=== PATIENT | male | born 1945 | race Caucasian/White ===

== ENCOUNTER → 2021-10-22 | Outpatient (CLI) | payer MEDICARE, OTHER ==
[~2021-10-22] MED LIST: OMEP40CA4 PO; SIMV20TA22 PO
== END ==
LOC: M LABSMTC 09:09
PROVIDERS: ATTEND Anesthesiology
DX: Z01.812 Encounter for preprocedural laboratory examination (principal); Z20.822 Contact with and (suspected) exposure to COVID-19

== ENCOUNTER 2023-07-10 08:26 | Inpatient (IN) | payer MEDICARE ==
[~2023-07-10] VITALS: Ht 167.6 cm; Wt 62.7 kg
[2023-07-10] MEDS ORDERED: FAMO40TA3 PO (08:42)
[2023-07-10] MEDS ORDERED: NS 2,140 ML in IV 1 EA IV ONE (08:50)
[2023-07-10] MEDS ORDERED: cefTRIAXone SOD 2 GM in D5W MINI-BAG PLUS 50 ML IV ONE (08:50)
[2023-07-10 08:54] LABS: BASO % 0.3 % (0.0-1.0); HEMATOCRIT 40.5 % (42.0-52.0); HEMOGLOBIN 13.6 g/dl (13.5-17.5); LYMPH # 0.7 10^3/uL (1.5-5.0); LYMPH % 7.7 % (24.0-44.0); MEAN CORPUSCULAR HEMOGLOBIN 31.9 pg (27.0-33.0); MEAN CORPUSCULAR HGB CONC 33.6 g/dl (32.0-36.5); MEAN CORPUSCULAR VOLUME 94.8 fl (80.0-96.0); MONO # 0.5 10^3/uL (0.0-0.8); MONO % 5.4 % (2.0-8.0); NEUTROPHILS # 8.3 10^3/uL (1.5-8.5); NEUTROPHILS % 86.3 % (36.0-66.0); PLATELET COUNT, AUTOMATED 214 10^3/uL (150-450); RED BLOOD COUNT 4.27 10^6/uL (4.30-6.10); WHITE BLOOD COUNT 9.6 10^3/uL (4.0-10.0)
[2023-07-10 09:19] LABS: ALBUMIN 3.9 G/DL (3.2-5.2); ALKALINE PHOSPHATASE 52 U/L (46-116); ALT/SGPT 24 U/L (7.0-40); AST/SGOT 17 U/L (<34); BILIRUBIN,TOTAL 0.4 MG/DL (0.3-1.2); BLOOD UREA NITROGEN 19 MG/DL (9-23); CALCIUM LEVEL 8.7 MG/DL (8.3-10.6); CARBON DIOXIDE LEVEL 25 MMOL/L (20-31); CHLORIDE LEVEL 100 MMOL/L (98-107); CREATININE FOR GFR 0.83 MG/DL (0.70-1.30); GLOMERULAR FILTRATION RATE > 60.0 (>42); GLUCOSE, FASTING 163 MG/DL (74-106); SODIUM LEVEL 136 MMOL/L (136-145); TOTAL PROTEIN 7.2 G/DL (5.7-8.2)
[2023-07-10] MEDS ORDERED: ACETAMINOPHEN TAB 650MG DOSE (2X325MG) PO ONE (09:30)
[2023-07-10 09:44] LABS: CK-MB VALUE MASS < 1.0 NG/ML (<3.6)
[2023-07-10 09:46] LABS: ALBUMIN 4.2 G/DL (3.2-5.2); ALKALINE PHOSPHATASE 55 U/L (46-116); ALT/SGPT 23 U/L (7.0-40); AST/SGOT 24 U/L (<34); BILIRUBIN,DIRECT 0.1 MG/DL (<0.4); BILIRUBIN,TOTAL 0.4 MG/DL (0.3-1.2); BLOOD UREA NITROGEN 20 MG/DL (9-23); CALCIUM LEVEL 8.9 MG/DL (8.3-10.6); CARBON DIOXIDE LEVEL 25 MMOL/L (20-31); CHLORIDE LEVEL 102 MMOL/L (98-107); CPK CREATINE PHOSPHOKINASE 107 U/L (46-171); CREATININE FOR GFR 0.82 MG/DL (0.70-1.30); GLOMERULAR FILTRATION RATE > 60.0 (>42); GLUCOSE, FASTING 154 MG/DL (74-106); MB/CK RELATIVE INDEX 0.93 (< OR =4); POTASSIUM SERUM 3.9 MMOL/L (3.5-5.1); SODIUM LEVEL 136 MMOL/L (136-145); TOTAL PROTEIN 7.3 G/DL (5.7-8.2)
[2023-07-10 09:49] LABS: THYROID STIMULATING HORMONE 0.694 uIU/ML (0.55-4.78)
[2023-07-10 09:53] LABS: PROCALCITONIN 0.14 ng/ml
[2023-07-10 11:23] LABS: CK-MB VALUE MASS < 1.0 NG/ML (<3.6)
[2023-07-10 11:24] LABS: CPK CREATINE PHOSPHOKINASE 98 U/L (46-171); MB/CK RELATIVE INDEX 1.02 (< OR =4)
[2023-07-10] MEDS ORDERED: ISOVUE-370 76% 100ML VIAL As Ordered ONE (12:02)
[2023-07-10] MEDS ORDERED: IBUPROFEN 400MG TAB PO ONE (13:00)
[2023-07-10] MEDS ORDERED: MED REC IN PROGRESS XX SCH (13:40)
[2023-07-10] MEDS ORDERED: IBUPROFEN 600MG TAB PO PRN (13:55)
[2023-07-10] MEDS ORDERED: HOME MED LIST COMPLETE! XX SCH (14:45)
[2023-07-10 15:20] VITALS: BP 134/81; TEMP 98.1; O2SAT 95
[2023-07-10] MEDS: DOXYCYCLINE HYCLATE 100 MG in D5W MINI-BAG PLUS 100 ML IV SCH (17:02)
[2023-07-10] MEDS: LACTOBACILLUS ACIDOPHILUS CAP (BACID) PO SCH (17:59)
[2023-07-10] MEDS: ACETAMINOPHEN TAB 650MG DOSE (2X325MG) PO PRN (20:57)
[2023-07-10] MEDS ORDERED: SIMVASTATIN 20 MG TAB PO SCH (21:00)
[2023-07-10] MEDS ORDERED: PANTOPRAZOLE 40MG TAB (PROTONIX) PO SCH (21:00)
[2023-07-10 22:00] VITALS: BP 129/76; TEMP 97.9; O2SAT 98
[2023-07-11] MEDS: DOXYCYCLINE HYCLATE 100 MG in D5W MINI-BAG PLUS 100 ML IV SCH (04:32)
[2023-07-11 06:00] VITALS: BP 163/63; TEMP 98.2; O2SAT 96
[2023-07-11] MEDS: ACETAMINOPHEN TAB 650MG DOSE (2X325MG) PO PRN (06:12)
[2023-07-11 06:27] LABS: BASO % 0.2 % (0.0-1.0); HEMATOCRIT 34.5 % (42.0-52.0); LYMPH # 1.2 10^3/uL (1.5-5.0); LYMPH % 10.9 % (24.0-44.0); MEAN CORPUSCULAR HEMOGLOBIN 31.4 pg (27.0-33.0); MONO # 0.8 10^3/uL (0.0-0.8); MONO % 7.3 % (2.0-8.0); NEUTROPHILS # 8.7 10^3/uL (1.5-8.5); NEUTROPHILS % 81.1 % (36.0-66.0); PLATELET COUNT, AUTOMATED 183 10^3/uL (150-450); RED BLOOD COUNT 3.63 10^6/uL (4.30-6.10); WHITE BLOOD COUNT 10.7 10^3/uL (4.0-10.0)
[2023-07-11 06:35] LABS: HEMOGLOBIN 11.4 g/dl (13.5-17.5)
[2023-07-11 06:40] LABS: BLOOD UREA NITROGEN 16 MG/DL (9-23); CALCIUM LEVEL 8.3 MG/DL (8.3-10.6); CARBON DIOXIDE LEVEL 27 MMOL/L (20-31); CHLORIDE LEVEL 104 MMOL/L (98-107); CREATININE FOR GFR 0.68 MG/DL (0.70-1.30); GLOMERULAR FILTRATION RATE > 60.0 (>42); GLUCOSE, FASTING 122 MG/DL (74-106); POTASSIUM SERUM 3.8 MMOL/L (3.5-5.1); SODIUM LEVEL 138 MMOL/L (136-145)
[2023-07-11] MEDS: LACTOBACILLUS ACIDOPHILUS CAP (BACID) PO SCH (08:08)
[2023-07-11] MEDS ORDERED: cefTRIAXone SOD 2 GM in D5W MINI-BAG PLUS 50 ML IV SCH (09:00)
[2023-07-11] MEDS ORDERED: ENOXAPARIN 40MG/0.4ML SYRINGE (J1650 PER 10MG) SC SCH (09:00)
[2023-07-11] MEDS ORDERED: AMOX875T2 PO (13:19)
[2023-07-11] MEDS ORDERED: RISATAB3 PO (13:19)
[2023-07-11] MEDS ORDERED: DOXY100T PO (13:19)
[2023-07-11] MEDS ORDERED: DOXYCYCLINE HYCLATE 100MG TABLET PO SCH (18:00)
[2023-07-13] MEDS ORDERED: PREVNAR-20 VACCINE 0.5ML SYRINGE IM.IMMUN ONE (09:00)
[2023-07-13 16:08] LABS: BODY FLUID CULTURE Not indicated. (.); LEGIONELLA ANTIGEN URINE Negative (Negative); ORGANISM ID Not indicated. (.); SPECIMEN SOURCE Urine (.); URINE STREP PNEUMONIAE ANTIGEN Negative (Negative)
== END 2023-07-11 14:19 | disposition home or self-care (01) | DRG 871 ==
LOC: M ED 08:26 → M ED INP 13:54 → ENRESERV 14:35 → M MSPAV 15:09
PROVIDERS: ADMIT Internal Medicine Nephrology; ATTEND Student in an Organized Health Care Education/Training Program
DX: A41.9 Sepsis, unspecified organism (principal); J18.9 Pneumonia, unspecified organism; E78.5 Hyperlipidemia, unspecified; K21.9 Gastro-esophageal reflux disease without esophagitis; D64.9 Anemia, unspecified; Z98.41 Cataract extraction status, right eye; Z98.42 Cataract extraction status, left eye; Z79.899 Other long term (current) drug therapy; Z20.822 Contact with and (suspected) exposure to COVID-19

== ENCOUNTER 2024-12-28 09:13 | Inpatient (IN) | payer MEDICARE ==
[2024-12-28] VITALS (14 sets, daily range): BP systolic 128–229; BP diastolic 63–95; TEMP 97.5–98.8; O2SAT 95–100
[~2024-12-28] VITALS: Ht 165.1 cm; Wt 65.9 kg
[~2024-12-28 09:13] MED LIST changes: +AMOX875T2 PO; +DOXY100T PO; +FAMO40TA3 PO; +RISATAB3 PO
[2024-12-28 10:35] LABS: MEAN CORPUSCULAR HEMOGLOBIN 28.2 pg (27.0-33.0); MEAN CORPUSCULAR HGB CONC 30.8 g/dl (32.0-36.5); MEAN CORPUSCULAR VOLUME 91.7 fl (80.0-96.0); PLATELET COUNT, AUTOMATED 298 10^3/uL (150-450); RED BLOOD COUNT 1.56 10^6/uL (4.30-6.10); WHITE BLOOD COUNT 8.8 10^3/uL (4.0-10.0)
[2024-12-28 10:40] LABS: HEMATOCRIT 14.3 % (42.0-52.0)
[2024-12-28 10:41] LABS: HEMOGLOBIN 4.4 g/dl (13.5-17.5)
[2024-12-28] MEDS ORDERED: HOME MED LIST COMPLETE! XX SCH (10:50)
[2024-12-28 10:59] LABS: INR 1.06; PARTIAL THROMBOPLASTIN TIME 21.8 SECONDS (24.8-34.2); PROTHROMBIN TIME 14.1 SECONDS (12.5-14.5)
[2024-12-28 11:08] LABS: ALBUMIN 3.2 G/DL (3.2-5.2); ALKALINE PHOSPHATASE 47 U/L (40-129); ALT/SGPT 18 U/L (7.0-40); AST/SGOT 16 U/L (<34); BILIRUBIN,DIRECT < 0.1 MG/DL (<0.4); BILIRUBIN,TOTAL 0.2 MG/DL (0.3-1.2); BLOOD UREA NITROGEN 43 MG/DL (9-23); CALCIUM LEVEL 8.4 MG/DL (8.3-10.6); CARBON DIOXIDE LEVEL 25 MMOL/L (20-31); CHLORIDE LEVEL 107 MMOL/L (98-107); CREATININE FOR GFR 1.45 MG/DL (0.70-1.30); GLOMERULAR FILTRATION RATE 49.9 (>35); GLUCOSE, FASTING 188 MG/DL (74-106); MAGNESIUM LEVEL 2.4 MG/DL (1.8-2.4); POTASSIUM SERUM 4.4 MMOL/L (3.5-5.1); SODIUM LEVEL 141 MMOL/L (136-145)
[2024-12-28 11:39] LABS: APPEARANCE, URINE MANUAL TURBID (CLEAR); COLOR, URINE MANUAL RED (YELLOW)
[2024-12-28 11:43] LABS: BILIRUBIN, URINE MANUAL OBSCURED (NEGATIVE); BLOOD URINE MANUAL POSITIVE (NEGATIVE); GLUCOSE, URINE (UA) MANUAL OBSCURED mg/dL (NEGATIVE); KETONE, URINE MANUAL OBSCURED mg/dL (NEGATIVE); LEUKOCYTE ESTERASE, URINE MAN OBSCURED (NEGATIVE); NITRITE, URINE MANUAL OBSCURED (NEGATIVE); PH,URINE MAN OBSCURED UNITS (5.0 - 7.0); PROTEIN, URINE MANUAL OBSCURED mg/dL (NEGATIVE); SPECIFIC GRAVITY,URINE MANUAL 1.026 (1.002-1.035); UROBILINOGEN, URINE MANUAL OBSCURED mg/dl (NORMAL)
[2024-12-28 11:48] LABS: BACTERIA, URINE SMALL AMOUNT; HYALINE CAST, URINE NONE SEEN /lpf (0-1); MUCUS, URINE SMALL AMOUNT (NEGATIVE); RBC, URINE TNTC /hpf (0-3); SQUAMOUS EPITHELIAL CELL URINE NONE SEEN /hpf (SMALL AMT)
[2024-12-28] MEDS ORDERED: MOM 30ML SUSPENSION UDC PO PRN (12:50)
[2024-12-28 13:56] LABS: IRON (FE) 19 UG/DL (65-175); PERCENT SATURATION 5.5 % (19.7-50.0); TOTAL IRON BINDING CAPACITY 346 UG/DL (250-425)
[2024-12-28 13:58] LABS: FERRITIN 4.1 NG/ML (10.5-307.3)
[2024-12-28 13:59] LABS: FOLATE > 24.0 NG/ML (>5.4); VITAMIN B12 LEVEL 261 PG/ML (211-911)
[2024-12-28] MEDS: PANTOPRAZOLE 40MG TAB (PROTONIX) PO SCH (14:19)
[2024-12-28] MEDS: DOCUSATE SODIUM 100MG CAPSULE PO SCH (14:19)
[2024-12-28] MEDS: LR 1,000 ML IV SCH (14:20)
[2024-12-28] MEDS ORDERED: MIDAZOLAM INJ 2MG/2ML VIAL As Ordered ONE (14:54)
[2024-12-28] MEDS ORDERED: ROCURONIUM BROMIDE 50MG/5ML VIAL As Ordered ONE (14:54)
[2024-12-28] MEDS ORDERED: propofoL 200 MG/20 ML VIAL As Ordered ONE (14:54)
[2024-12-28] MEDS ORDERED: LIDOCAINE 2% 100MG/5ML SDV (FOR ANES.) As Ordered ONE (14:54)
[2024-12-28] MEDS ORDERED: fentaNYL 100 MCG/2 ML INJECTION As Ordered ONE (14:54)
[2024-12-28] MEDS ORDERED: diphenhydrAMINE 50MG/ML VIAL IV PRN (14:55)
[2024-12-28] MEDS ORDERED: NORCO, ANEXSIA 5/325MG TABLET (HYDROcodone/ACETAMINOPHEN) PO PRN (14:55)
[2024-12-28] MEDS ORDERED: HYDROMORPHONE HCL 0.5 MG/ 0.5 ML SYRINGE IV PRN (14:55)
[2024-12-28] MEDS ORDERED: SUCCINYLCHOLINE 100MG/5ML SYRINGE As Ordered ONE (15:20)
[2024-12-28] MEDS: ceFAZolin SODIUM 2 GM VIAL As Ordered ONE (15:29)
[2024-12-28] MEDS ORDERED: SUGAMMADEX SODIUM 500 MG/5 ML VIAL (BRIDION) As Ordered ONE (15:35)
[2024-12-28] MEDS ORDERED: ONDANSETRON 4MG 2ML VIAL As Ordered ONE (15:35)
[2024-12-28] MEDS ORDERED: PHENYLephrine 500MCG 5ML (100MCG/ML) SYRINGE As Ordered ONE (15:35)
[2024-12-28 16:44] LABS: HEMATOCRIT 21.3 % (42.0-52.0); MEAN CORPUSCULAR HEMOGLOBIN 28.6 pg (27.0-33.0); MEAN CORPUSCULAR HGB CONC 31.5 g/dl (32.0-36.5); PLATELET COUNT, AUTOMATED 234 10^3/uL (150-450); RED BLOOD COUNT 2.34 10^6/uL (4.30-6.10); WHITE BLOOD COUNT 13.2 10^3/uL (4.0-10.0)
[2024-12-28 16:47] LABS: HEMOGLOBIN 6.7 g/dl (13.5-17.5)
[2024-12-28] MEDS: FERRIC CARBOXYMALTOSE INJ 750 MG, VIAL MATE ADAPTER 1 EACH in NS 100 ML IV ONE (20:15)
[2024-12-28 21:14] LABS: HEMATOCRIT 23.9 % (42.0-52.0); HEMOGLOBIN 7.9 g/dl (13.5-17.5); MEAN CORPUSCULAR HEMOGLOBIN 29.2 pg (27.0-33.0); MEAN CORPUSCULAR HGB CONC 33.1 g/dl (32.0-36.5); MEAN CORPUSCULAR VOLUME 88.2 fl (80.0-96.0); PLATELET COUNT, AUTOMATED 228 10^3/uL (150-450); RED BLOOD COUNT 2.71 10^6/uL (4.30-6.10)
[2024-12-28] MEDS: VANICREAM MOISTURIZING SKIN CREAM 113GM TUBE TOP SCH (21:29)
[2024-12-29 00:01] VITALS: BP 120/50; TEMP 98.1; O2SAT 93
[2024-12-29 04:20] VITALS: BP 136/77; TEMP 98.6; O2SAT 94
[2024-12-29 06:12] LABS: HEMATOCRIT 23.7 % (42.0-52.0); HEMOGLOBIN 7.8 g/dl (13.5-17.5); MEAN CORPUSCULAR HGB CONC 32.9 g/dl (32.0-36.5); MEAN CORPUSCULAR VOLUME 88.1 fl (80.0-96.0); PLATELET COUNT, AUTOMATED 216 10^3/uL (150-450); RED BLOOD COUNT 2.69 10^6/uL (4.30-6.10); WHITE BLOOD COUNT 13.5 10^3/uL (4.0-10.0)
[2024-12-29 06:36] LABS: CALCIUM LEVEL 7.9 MG/DL (8.3-10.6); CREATININE FOR GFR 1.37 MG/DL (0.70-1.30); GLOMERULAR FILTRATION RATE 53.2 (>35); POTASSIUM SERUM 4.5 MMOL/L (3.5-5.1)
[2024-12-29 08:00] VITALS: BP 126/61; TEMP 97.9; O2SAT 95
[2024-12-29] MEDS: SIMVASTATIN 20 MG TAB PO SCH (08:31)
[2024-12-29] MEDS: ACETAMINOPHEN 325 MG TAB PO PRN (08:31)
[2024-12-29 12:00] VITALS: BP 111/63; TEMP 97.7; O2SAT 95
[2024-12-29] MEDS ORDERED: FERR325T3 PO (12:55)
== END 2024-12-29 15:18 | disposition home health service (06) | DRG 669 ==
LOC: M ED 09:13 → M ED INP 12:49 → M MSPAV 17:25
PROVIDERS: ADMIT Student in an Organized Health Care Education/Training Program; ATTEND Student in an Organized Health Care Education/Training Program
PROC: 30233N1 Transfusion of Nonautologous Red Blood Cells into Peripheral Vein, Percutaneous Approach (ICD-10-PCS; 2024-12-28)
PROC: 0TCB8ZZ Extirpation of Matter from Bladder, Via Natural or Artificial Opening Endoscopic (ICD-10-PCS; 2024-12-28)
PROC: 0TBB8ZX Excision of Bladder, Via Natural or Artificial Opening Endoscopic, Diagnostic (ICD-10-PCS; principal; 2024-12-28 14:53)
DX: C67.8 Malignant neoplasm of overlapping sites of bladder (principal); N13.0 Hydronephrosis with ureteropelvic junction obstruction; N17.9 Acute kidney failure, unspecified; D62 Acute posthemorrhagic anemia; E78.5 Hyperlipidemia, unspecified; K57.30 Diverticulosis of large intestine without perforation or abscess without bleeding; K64.9 Unspecified hemorrhoids; K21.9 Gastro-esophageal reflux disease without esophagitis; F03.90 Unspecified dementia, unspecified severity, without behavioral disturbance, psychotic disturbance, mood disturbance, and anxiety; R31.0 Gross hematuria; N32.9 Bladder disorder, unspecified; R42 Dizziness and giddiness; Z79.899 Other long term (current) drug therapy; Z98.49 Cataract extraction status, unspecified eye

== ENCOUNTER → 2025-01-01 | Outpatient (CLI) | payer MEDICARE ==
[~2025-01-01] MED LIST changes: +FERR325T3 PO
== END ==
LOC: M RAD 14:28
PROVIDERS: ATTEND Family Medicine
DX: R31.9 Hematuria, unspecified (principal); N13.4 Hydroureter; K57.30 Diverticulosis of large intestine without perforation or abscess without bleeding

== ENCOUNTER → 2025-01-21 | Outpatient (CLI) | payer MEDICARE ==
[~2025-01-21] MED LIST changes: +ACETAMINOPHEN 325 MG TAB PO PRN; +MORPHINE 2 MG/ML 1ML VIAL IV PRN; +NS (Normal Saline) 0.9% 1,000 ML IV SCH; +ONDANSETRON 4MG 2ML VIAL IV PRN; +PERCOCET 5MG/325MG TAB PO PRN; +SODIUM CHLORIDE 0.9% 1000 ML XX ONE
[2025-01-21 09:05] VITALS: TEMP 97.7
[2025-01-21] MEDS: NS (Normal Saline) 0.9% 1,000 ML IV SCH (09:23)
[2025-01-21] MEDS: MIDAZOLAM INJ 2MG/2ML VIAL IV PRN (10:20)
[2025-01-21] MEDS: fentaNYL 100 MCG/2 ML INJECTION IV PRN (10:20)
[2025-01-21] MEDS: CIPROFLOXACIN 400 MG in IV 1 EA IV ONE (10:20)
[2025-01-21] MEDS: ISOVUE-300 61% 100ML VIAL IV ONE (10:56)
[2025-01-21] MEDS: LIDOCAINE 1% MDV 20ML VIAL SC ONE (10:56)
[2025-01-21 13:30] VITALS: BP 161/79; O2SAT 98
== END ==
LOC: M IRPRO 08:43
PROVIDERS: ATTEND Nurse Practitioner Family
DX: N13.30 Unspecified hydronephrosis (principal)
CPT/HCPCS: 50432; 76942; 99152; 99153; C1729; C1894; J0744; J2250; J3010; Q9967

== ENCOUNTER → 2025-01-22 | Outpatient (CLI) | payer MEDICARE ==
[~2025-01-22] MED LIST changes: -ACETAMINOPHEN 325 MG TAB PO PRN; -MORPHINE 2 MG/ML 1ML VIAL IV PRN; -NS (Normal Saline) 0.9% 1,000 ML IV SCH; -ONDANSETRON 4MG 2ML VIAL IV PRN; -PERCOCET 5MG/325MG TAB PO PRN; -SODIUM CHLORIDE 0.9% 1000 ML XX ONE
== END ==
LOC: M RAD 14:40
PROVIDERS: ATTEND Nurse Practitioner Family
DX: C67.9 Malignant neoplasm of bladder, unspecified (principal)

== ENCOUNTER → 2025-01-27 | Outpatient (CLI) | payer MEDICARE | LOC: M ONCR 12:50 | PROVIDERS: ATTEND General Practice | DX: C67.8 Malignant neoplasm of overlapping sites of bladder (principal); Z79.899 Other long term (current) drug therapy ==

== ENCOUNTER → 2025-01-30 | Outpatient (CLI) | payer MEDICARE ==
[2025-01-30 07:10] VITALS: TEMP 97.1
[2025-01-30] MEDS: MIDAZOLAM INJ 2MG/2ML VIAL IV PRN (08:19)
[2025-01-30] MEDS: fentaNYL 100 MCG/2 ML INJECTION IV PRN (08:20)
[2025-01-30] MEDS: ceFAZolin SODIUM 2 GM in DEXTROSE 5% (D5W) ADV/MINI-BAG 50 ML IV ONE (08:31)
[2025-01-30] MEDS: LIDOCAINE 1% MDV 20ML VIAL SC ONE (08:32)
[2025-01-30] MEDS: NS (Normal Saline) 0.9% 1,000 ML IV SCH (08:32)
[2025-01-30] MEDS: SODIUM CHLORIDE 0.9% INJ 10 ML SYR IV SCH (08:34)
[2025-01-30 09:00] VITALS: BP 134/71; O2SAT 96
== END ==
LOC: M IRPRO 07:02
PROVIDERS: ATTEND Specialist
DX: C67.9 Malignant neoplasm of bladder, unspecified (principal)
CPT/HCPCS: 36561; 99152; C1894; J0690; J1642; J2250; J3010

== ENCOUNTER → 2025-02-11 | Outpatient (CLI) | payer MEDICARE | LOC: M PLARAD 07:21 | PROVIDERS: ATTEND Specialist | DX: C67.8 Malignant neoplasm of overlapping sites of bladder (principal) | CPT/HCPCS: 78815; A9552 ==

== ENCOUNTER 2025-02-18 07:48 | Outpatient (RCR) | payer MEDICARE ==
[2025-02-18] MEDS ORDERED: FERR325T3 PO (08:37)
== END 2025-02-19 ==
LOC: M ONCR 07:48
PROVIDERS: ATTEND General Practice
DX: Z51.0 Encounter for antineoplastic radiation therapy (principal); C67.8 Malignant neoplasm of overlapping sites of bladder

== ENCOUNTER 2025-05-01 08:24 | Outpatient (RCR) | payer MEDICARE ==
[~2025-05-01 08:24] MED LIST changes: +ONDA-84 PO; +PROC10TA5 PO
== END 2025-05-22 ==
LOC: M ONCR 08:24
PROVIDERS: ATTEND General Practice
DX: Z51.0 Encounter for antineoplastic radiation therapy (principal); C67.8 Malignant neoplasm of overlapping sites of bladder

== ENCOUNTER → 2025-05-06 | Outpatient (CLI) | payer MEDICARE ==
[2025-05-06 09:34] VITALS: TEMP 97.6
[2025-05-06] MEDS: MIDAZOLAM INJ 2 MG/2 ML VIAL IV PRN (10:11)
[2025-05-06 11:30] VITALS: BP 130/68; O2SAT 98
[2025-05-06] MEDS: NS (Normal Saline) 0.9% 1,000 ML IV SCH (11:35)
[2025-05-06] MEDS: LIDOCAINE 1% MDV 20 ML VIAL SC SCH (11:35)
== END ==
LOC: M IRPRO 09:13
PROVIDERS: ATTEND Specialist
DX: C67.9 Malignant neoplasm of bladder, unspecified (principal)
CPT/HCPCS: 20220; 36415; 77012; 80053; 83735; 85025; 88305; 88311; 99152; 99153; J2250; J3010

== ENCOUNTER → 2025-07-08 | Outpatient (CLI) | payer MEDICARE ==
[~2025-07-08] MED LIST changes: +BACTDSTA PO
[2025-07-08] MEDS: ISOVUE-300 61% 100 ML VIAL IV SCH (09:15)
[2025-07-08 09:55] VITALS: TEMP 97.4
[2025-07-08] MEDS: NS (Normal Saline) 0.9% 1,000 ML IV SCH (10:48)
[2025-07-08] MEDS: CIPROFLOXACIN 400 MG in IV 1 EA IV ONE (10:49)
[2025-07-08] MEDS: SODIUM CHLORIDE 0.9% 1000 ML XX SCH (10:50)
[2025-07-08] MEDS: MIDAZOLAM INJ 2 MG/2 ML VIAL IV PRN (11:19)
[2025-07-08] MEDS: LIDOCAINE 1% MDV 20 ML VIAL SC SCH (11:26)
[2025-07-08 11:50] VITALS: BP 139/83; O2SAT 97
[2025-07-08 12:14] LABS: KETONE, URINE AUTO RFX NEGATIVE (NEGATIVE); NITRITE, URINE AUTO RFX NEGATIVE (NEGATIVE); RBC, URINE AUTO RFX TNTC /HPF (0-3); SQUAM EPITHELIAL CELL UR AURFX 0 /HPF (0-6)
[2025-07-08 12:15] LABS: LEUKOCYTE ESTERASE UR AUTO RFX 2+ (NEGATIVE); WBC, URINE AUTO RFX TNTC /HPF (0-3)
== END ==
LOC: M IRPRO 09:40 → EEVIPCON 09:40
PROVIDERS: ATTEND Nurse Practitioner Family
DX: N13.30 Unspecified hydronephrosis (principal); A49.02 Methicillin resistant Staphylococcus aureus infection, unspecified site; R30.0 Dysuria
CPT/HCPCS: 50435; 81001; 87088; 87186; 99152; C1729; J0744; J2250; J3010; Q9967

== ENCOUNTER → 2025-07-23 | Outpatient (CLI) | payer MEDICARE ==
[2025-07-23 11:22] LABS: ALT/SGPT 15.0 U/L (7.0-40); AST/SGOT 18.0 U/L (<34); CALCIUM LEVEL 9.3 MG/DL (8.3-10.6); CARBON DIOXIDE LEVEL 30.0 MMOL/L (20-31); CHLORIDE LEVEL 101.0 MMOL/L (98-107); CREATININE FOR GFR 1.14 MG/DL (0.70-1.30); GLOMERULAR FILTRATION RATE 64.6 (>35); POTASSIUM SERUM 4.3 MMOL/L (3.5-5.1); SODIUM LEVEL 140.0 MMOL/L (136-145)
== END ==
LOC: M LAB 10:14
PROVIDERS: ATTEND General Practice
DX: C67.8 Malignant neoplasm of overlapping sites of bladder (principal)

== ENCOUNTER → 2025-07-25 | Outpatient (CLI) | payer MEDICARE, MEDICAID ==
[~2025-07-25] MED LIST changes: +ISOVUE-370 76% 100 ML VIAL As Ordered ONE
[2025-07-25 10:58] LABS: ALT/SGPT 15.0 U/L (7.0-40); AST/SGOT 21.0 U/L (<34); CALCIUM LEVEL 9.4 MG/DL (8.3-10.6); CARBON DIOXIDE LEVEL 28.0 MMOL/L (20-31); CHLORIDE LEVEL 102.0 MMOL/L (98-107); CREATININE FOR GFR 1.05 MG/DL (0.70-1.30); GLOMERULAR FILTRATION RATE 71.3 (>35); POTASSIUM SERUM 5.0 MMOL/L (3.5-5.1); SODIUM LEVEL 140.0 MMOL/L (136-145)
== END ==
LOC: M RAD 09:45
PROVIDERS: ATTEND General Practice
DX: C67.8 Malignant neoplasm of overlapping sites of bladder (principal)

== ENCOUNTER → 2025-08-07 | Outpatient (CLI) | payer MEDICARE, MEDICAID ==
[~2025-08-07] MED LIST changes: -ISOVUE-370 76% 100 ML VIAL As Ordered ONE
== END ==
LOC: M ONCR 09:56
PROVIDERS: ATTEND General Practice
DX: C67.9 Malignant neoplasm of bladder, unspecified (principal)

== ENCOUNTER → 2025-08-18 | Outpatient (CLI) | payer MEDICARE, MEDICAID ==
[~2025-08-18] MED LIST changes: +ISOVUE-370 76% 100 ML VIAL As Ordered ONE
== END ==
LOC: M RAD 06:13
DX: C67.9 Malignant neoplasm of bladder, unspecified (principal)
CPT/HCPCS: 71260; 74177; Q9967

== ENCOUNTER → 2025-10-07 | Outpatient (CLI) | payer MEDICARE ==
[~2025-10-07] MED LIST changes: -BACTDSTA PO; -ISOVUE-370 76% 100 ML VIAL As Ordered ONE; +SULF-8 PO
[2025-10-07] MEDS: SODIUM CHLORIDE 0.9% 1000 ML XX SCH (12:35)
[2025-10-07 12:37] VITALS: TEMP 96.7
[2025-10-07] MEDS: CIPROFLOXACIN 400 MG in IV 1 EA IV ONE (13:08)
[2025-10-07] MEDS: NS (Normal Saline) 0.9% 1,000 ML IV SCH (13:09)
[2025-10-07] MEDS: MIDAZOLAM INJ 2 MG/2 ML VIAL IV PRN (13:38)
[2025-10-07] MEDS: ISOVUE-300 61% 100 ML VIAL IV SCH (13:41)
[2025-10-07] MEDS: LIDOCAINE 1% MDV 20 ML VIAL SC SCH (13:42)
[2025-10-07 14:29] VITALS: BP 134/71; O2SAT 99
== END ==
LOC: M IRPRO 12:19
PROVIDERS: ATTEND Nurse Practitioner Family
DX: N13.30 Unspecified hydronephrosis (principal)
CPT/HCPCS: 50435; 99152; C1729; J0744; J2250; J3010; Q9967